=== PATIENT | female | born 1955 | race Caucasian/White ===

== ENCOUNTER 2021-01-30 10:19 | Outpatient (CLI) | payer MEDICARE, BC | END 2021-01-30 10:20 | disposition home or self-care (01) | LOC: CSHMAMMO 10:19 | PROVIDERS: ATTEND Obstetrics & Gynecology | DX: Z12.31 Encounter for screening mammogram for malignant neoplasm of breast (principal); Z85.89 Personal history of malignant neoplasm of other organs and systems | CPT/HCPCS: 77063; 77067 ==

== ENCOUNTER 2023-05-18 09:37 | Outpatient (CLI) | payer MEDICARE | END 2023-05-18 09:38 | disposition home or self-care (01) | LOC: CSHMAMMO 09:37 | PROVIDERS: ATTEND Internal Medicine | DX: Z12.31 Encounter for screening mammogram for malignant neoplasm of breast (principal); Z85.89 Personal history of malignant neoplasm of other organs and systems | CPT/HCPCS: 77063; 77067 ==

== ENCOUNTER 2025-02-05 13:26 | Outpatient (CLI) | payer MEDICARE ==
[2025-02-05 14:05] LABS: Hematocrit 38.0 % (34.9-44.5); Hemoglobin 13.2 g/dL (12.0-15.5); Mean Corpuscular Hemoglobin 31.5 pg (27.0-33.0); Mean Corpuscular Volume 90.7 fL (81.6-98.3); Platelet Count 221 10x3/uL (150-450); Red Blood Cell (RBC) Count 4.19 10x6/uL (3.90-5.03); White Blood Cell (WBC) Count 5.22 10x3/uL (3.5-10.5)
[2025-02-05 14:22] LABS: Anion Gap 11 mmol/L (10-20); BUN (Urea Nitrogen) 15 mg/dL (9.8-20.1); Calc. Creatinine Clearance 0 mL/min (70-130); Calcium 9.4 mg/dL (7.8-10.44); Carbon Dioxide 28 mmol/L (23-31); Chloride 105 mmol/L (98-107); Glucose 133 mg/dL (80-115); Potassium 3.9 mmol/L (3.5-5.1); Sodium 140 mmol/L (136-145)
== END 2025-02-05 13:27 | disposition home or self-care (01) ==
LOC: CSHLAB 13:26
PROVIDERS: ATTEND Surgery
DX: Z01.818 Encounter for other preprocedural examination (principal); K44.9 Diaphragmatic hernia without obstruction or gangrene
CPT/HCPCS: 80048; 85027; 93005; 93010

== ENCOUNTER 2025-02-12 05:55 | Inpatient (IN) | payer MEDICARE ==
[2025-02-05 13:47] VITALS: BMI 27.9
[2025-02-12] MEDS ORDERED: PROPOFOL 20 ML ONE (07:15)
[2025-02-12] MEDS ORDERED: Rocuronium Bromide 10 MG/ML (10ML VIAL) ONE ×2 (07:16→15:05)
[2025-02-12] MEDS ORDERED: Lidocaine 1% PF 5 ML VIAL ONE (07:16)
[2025-02-12] MEDS ORDERED: Bupivacaine/Epinephrine 0.25% 30 ML VIAL ONE ×2 (11:46→14:26)
[2025-02-12] MEDS ORDERED: CEFAZOLIN 2 GM VIAL ONE (14:25)
[2025-02-12] MEDS ORDERED: Scopolamine 1 mg/72 hour Patch ONE (15:36)
[2025-02-12] MEDS ORDERED: Enoxaparin 40 MG (0.4 mL) SYRINGE SC SCH (15:45)
[2025-02-12] MEDS ORDERED: Glucagon 1 MG/ML KIT IM PRN (17:39)
[2025-02-12] MEDS ORDERED: diphenhydrAMINE 50 MG/ML VIAL IVP PRN (17:39)
[2025-02-12] MEDS ORDERED: Ondansetron PF 4 MG/2 ML Vial IVP PRN (17:39)
[2025-02-12] MEDS ORDERED: Dextrose 50% Abboject 50 ML SYRINGE SLOW IVP PRN (17:39)
[2025-02-12] MEDS ORDERED: SUGAMMADEX SODIUM 200 MG/2 ML VIAL ONE (17:41)
[2025-02-12] MEDS ORDERED: PHENYLEPHRINE-NS 100 MCG/ML 10 ML SYRINGE ONE (17:41)
[2025-02-12] MEDS ORDERED: HYDROmorphone 0.5 MG/0.5 ML SYRINGE ONE (18:25)
[2025-02-12] MEDS: D5 1/2 NS w/20 mEq KCL 1,000 ML IV SCH (20:39)
[2025-02-12] MEDS: Losartan 50 MG TAB PO SCH (20:40)
[2025-02-12] MEDS: Ketorolac Tromethamine 30 MG (1 mL) VIAL IVP SCH (20:41)
[2025-02-12] MEDS: HYDROmorphone 0.5 MG/0.5 ML SYRINGE SLOW IVP SCH (20:42)
[2025-02-12] MEDS: hydrALAZINE 20 MG/ML VIAL SLOW IVP PRN (21:00)
[2025-02-12] MEDS: Acetaminophen 500 MG TAB PO SCH (21:55)
[2025-02-13] MEDS ORDERED: HYDROmorphone 0.5 MG/0.5 ML SYRINGE SLOW IVP PRN (05:49)
[2025-02-13] MEDS: Enoxaparin 40 MG (0.4 mL) SYRINGE SC SCH (08:20)
[2025-02-13 13:27] VITALS: BP 143/77; TEMP 98.2
== END 2025-02-13 13:57 | disposition home or self-care (01) | DRG 328 ==
LOC: CSHSDC 05:55 → CSHTELE 17:39
PROVIDERS: ADMIT Surgery; ATTEND Surgery
PROC: 0BQT4ZZ Repair Diaphragm, Percutaneous Endoscopic Approach (ICD-10-PCS; principal; 2025-02-12)
PROC: 0DV44ZZ Restriction of Esophagogastric Junction, Percutaneous Endoscopic Approach (ICD-10-PCS; 2025-02-12)
PROC: 8E0W4CZ Robotic Assisted Procedure of Trunk Region, Percutaneous Endoscopic Approach (ICD-10-PCS; 2025-02-12)
PROC: 3E03329 Introduction of Other Anti-infective into Peripheral Vein, Percutaneous Approach (ICD-10-PCS; 2025-02-12)
DX: K44.9 Diaphragmatic hernia without obstruction or gangrene (principal); K21.9 Gastro-esophageal reflux disease without esophagitis; Z88.2 Allergy status to sulfonamides; Z88.8 Allergy status to other drugs, medicaments and biological substances; Z98.890 Other specified postprocedural states; Z79.899 Other long term (current) drug therapy; Z79.84 Long term (current) use of oral hypoglycemic drugs
CPT/HCPCS: 36416; 94760; 94762; J0360; J0694; J1171; J1650; J1885; J2704; J3010; J3480; S2900

== ENCOUNTER 2025-02-27 16:21 | Emergency (ER) | payer MEDICARE ==
[2025-02-27 17:02] LABS: #Basophils Less than 0.03 10x3/uL (0.0-0.2); #Eosinophils 0.23 10x3/uL (0.0-0.5); #Monocytes 0.37 10x3/uL (0.0-1.1); #Neutrophils 3.08 10x3/uL (1.5-8.4); %Basophils 0.4 % (0.0-2.0); %Eosinophils 4.0 % (0.0-6.0); %Lymphocytes 34.8 % (18.0-47.0); %Monocytes 6.5 % (0.0-10.0); %Neutrophils 54.1 % (40.0-75.0); Hematocrit 33.8 % (34.9-44.5); Hemoglobin 11.9 g/dL (12.0-15.5); Mean Corpuscular Hemoglobin 31.3 pg (27.0-33.0); Mean Corpuscular Volume 88.9 fL (81.6-98.3); Platelet Count 324 10x3/uL (150-450); Red Blood Cell (RBC) Count 3.80 10x6/uL (3.90-5.03); White Blood Cell (WBC) Count 5.69 10x3/uL (3.5-10.5)
[2025-02-27 17:18] LABS: ALT (SGPT) 44 U/L (Less than 34); AST (SGOT) 28 U/L (11-34); Albumin 3.9 g/dL (3.1-4.5); Alkaline Phosphatase 49 U/L (40-110); Anion Gap 13 mmol/L (10-20); BUN (Urea Nitrogen) 19 mg/dL (9.8-20.1); Bilirubin, Total 0.3 mg/dL (0.3-1.2); Calc. Creatinine Clearance 0 mL/min (70-130); Calcium 9.6 mg/dL (7.8-10.44); Carbon Dioxide 23 mmol/L (23-31); Chloride 104 mmol/L (98-107); Globulin 3.0 g/dL (2.4-3.5); Glucose 136 mg/dL (80-115); Potassium 3.3 mmol/L (3.5-5.1); Sodium 137 mmol/L (136-145)
[2025-02-27 17:21] LABS: Glucose, Urine (Dipstick) Normal (Negative); Leukocyte 25 (Negative); Protein, Urine (Dipstick) 30 mg/dl (Neg-Trace); Specific Gravity, Urine 1.005 (1.005-1.030)
[2025-02-27 17:23] LABS: Troponin I Less than 0.010 ng/mL (< 0.028)
[2025-02-27 17:56] LABS: CAUTI Indications for Culture Pelvic or flank pain; RBC/HPF 0-3 HPF (0-3)
[2025-02-27 17:57] LABS: Bacteria/HPF 3+ HPF (None Seen); Mucous/LPF 3+ LPF (<2+)
[2025-02-27 17:58] LABS: Urine Culture Reflex No No
[2025-02-27 21:15] LABS: Troponin I Less than 0.010 ng/mL (< 0.028)
== END 2025-02-27 21:35 | disposition home or self-care (01) ==
LOC: CSHERS 16:21
DX: E86.0 Dehydration (principal); R53.1 Weakness; E11.9 Type 2 diabetes mellitus without complications
CPT/HCPCS: 36415; 71045; 71275; 80053; 81001; 84484; 85025; 93005; 96360; 96361